=== PATIENT | female | born 1960 | race Caucasian/White ===

== ENCOUNTER 2019-10-29 13:18 | Outpatient (CLI) | payer OTHER ==
--- NOTE | 2019-10-29 13:43 | MMO ---
Bilateral MAMMO Bilat Screen [facility]. CLINICAL HISTORY: Patient is 58 years old and is seen for screening. The patient has the following family history of breast cancer: mother, at age 74. The patient has no personal history of cancer. The patient has a history of bilateral Breast reduction in 2008. VIEWS: The views performed were: bilateral craniocaudal with tomosynthesis and bilateral mediolateral oblique with tomosynthesis. FILMS COMPARED: The present examination has been compared to prior imaging studies performed at [facility] on 05/24/2013 and 07/19/2016, and at [facility] on 05/28/2009 and 01/21/2011. This study has been interpreted with the assistance of computer-aided detection. MAMMOGRAM FINDINGS: There are scattered fibroglandular densities. There are stable benign appearing calcifications seen in both breasts. There are no suspicious masses, suspicious calcifications, or new areas of architectural distortion. IMPRESSION: THERE IS NO MAMMOGRAPHIC EVIDENCE OF MALIGNANCY. A ROUTINE FOLLOW-UP MAMMOGRAM IN 1 YEAR IS RECOMMENDED. THE RESULTS OF THIS EXAM WERE SENT TO THE PATIENT. ACR BI-RADS Category 2 - Benign finding MAMMOGRAPHY NOTE: 1. A negative mammogram report should not delay a biopsy if a dominant of clinically suspicious mass is present. 2. Approximately 10% to 15% of breast cancers are not detected by mammography. 3. Adenosis and dense breasts may obscure an underlying neoplasm. Reported by: EZ DUKE MD Electonically Signed: [id number]
== END 2019-10-29 13:19 | disposition home or self-care (01) ==
LOC: BICMAMMO 13:18
PROVIDERS: ATTEND Nurse Practitioner
DX: Z12.31 Encounter for screening mammogram for malignant neoplasm of breast (principal); Z80.3 Family history of malignant neoplasm of breast; Z98.890 Other specified postprocedural states
CPT/HCPCS: 77063; 77067

== ENCOUNTER 2019-12-12 05:57 | Day surgery (SDC) | payer OTHER ==
[2019-12-11 15:38] VITALS: BMI 27.1
[2019-12-12] MEDS ORDERED: Midazolam HCl 2 mg/2 ml Vial ONE (07:07)
[2019-12-12] MEDS ORDERED: Fentanyl 100 MCG/2 ML VIAL ONE (07:07)
[2019-12-12] MEDS ORDERED: Ondansetron PF 4 MG/2 ML Vial ONE ×2 (07:15→11:11)
[2019-12-12] MEDS ORDERED: PROPOFOL 20 ML ONE (07:15)
[2019-12-12] MEDS ORDERED: Ketorolac Tromethamine 30 MG/ML VIAL ONE ×2 (07:15→11:11)
[2019-12-12] MEDS ORDERED: Bupivacaine/Epinephrine 0.25% 30 ML VIAL ONE (07:48)
[2019-12-12] MEDS ORDERED: EPHEDRINE 25 MG/5 ML SYRINGE ONE ×3 (07:49→11:11)
[2019-12-12] MEDS ORDERED: Lidocaine 1% (PF) 30 ML VIAL ONE (08:19)
[2019-12-12] MEDS ORDERED: Lidocaine 1% PF 5 ML VIAL ONE (11:11)
[2019-12-12] MEDS ORDERED: PROPOFOL 200 MG/20 ML VIAL ONE (11:11)
--- NOTE | 2019-12-12 14:08 | HP ---
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 The patient's pain has been present for now at least 8 months. The patient was hiking and had acute increase in pain knee. The patient has pain that is 0 to 4/10 at times. PAST MEDICAL HISTORY: Hypertension, depression, reflux, and diabetes. PAST SURGICAL HISTORY: Tonsillectomy, breast reduction, carpal tunnel bilaterally, and appendectomy. ALLERGIES: NO KNOWN DRUG ALLERGIES. MEDICATIONS: 1. Amlodipine. 2. Aspirin. 3. Pristiq. 4. Esomeprazole. 5. Hydrochlorothiazide. 6. Lisinopril. 7. Metformin. 8. Multivitamin. 9. Naproxen. 10. Ruvastatin. 11. Ozempic. PHYSICAL EXAMINATION: GENERAL: Alert and oriented female, in no acute distress, resting comfortably in bed. EXTREMITIES: Left lower extremity, no effusion, no erythema, no ecchymosis, no significant swelling. The patient has on palpation, this may be a subtle palpable cyst. The patient has no surgical wounds appreciated. She is neurovascularly intact with positive Batsheva's. The patient has full flexion and extension. IMAGING STUDIES: MRI from earlier this year showed a medial meniscus tear with a posteromedial aspect of the calf a parameniscal cyst. IMPRESSION: 1. Tear of medial meniscus, left knee. 2. Cyst of the left knee joint. ASSESSMENT AND PLAN: I discussed with the patient the risks and benefits of left knee arthroscopy with partial medial meniscectomy with possible decompression of the cyst versus an open excision. I discussed the risks and benefits of the surgery to include, pain, scar, bleeding, infection, damage to vital structures, decreased range of motion and strength, need for further surgery, continued pain despite surgical intervention, loss of life or limb, and blood clots. I discussed the risks and benefits of just decompressing the cyst versus open excision. I discussed the series of an examination or small aspiration of the cyst, that has been shown in some studies to be beneficial as well as an open excision. I discussed that there is more risk associated with the open incision, greater scar, I tried to show the patient the difference between the mechanical pain associated with the medial meniscus versus palpable pain from the mass component of the cyst. We discussed both options at length and the patient elected for just the decompression and not an open excision. I discussed that at a later date if necessary that could be performed. She understood this. The patient elected to proceed with a left medial meniscectomy with decompression instead of aspiration and the patient will be taken to the operating suite. Job ID: [id number]
--- NOTE | 2019-12-13 07:55 | OP ---
DATE OF PROCEDURE: 12/12/2019 PREOPERATIVE DIAGNOSIS: Left medial meniscus tear complex with parameniscal cyst. POSTOPERATIVE DIAGNOSIS: Left medial meniscus tear complex with parameniscal cyst. PROCEDURE PERFORMED: Left medial meniscectomy. MACHINE STACKER: None. ANESTHESIOLOGIST: Lm Louise MD ANESTHESIA: The patient received an LMA with 25 mL of Marcaine 0.25% with epinephrine preprocedure, 25 mL lidocaine 1% plain postprocedure. ANTIBIOTICS: 2 g of Ancef. TOURNIQUET TIME: 21 minutes. COMPLICATIONS: None. HISTORY OF PRESENT ILLNESS: Ms. Monsivais is a pleasant 58-year-old female. She is a pharmacist, who noted left medial knee pain. MRI evidence showing a medial meniscus tear with parameniscal cyst. I discussed with her risks and benefits of a medial meniscectomy with possible decompression versus open excision of the parameniscal cyst. She understood the risks and benefits to include, pain, scar, bleeding, infection, damage to vital structures, decreased range of motion, recurrence of parameniscal cyst, need for further surgeries, blood clots, loss of life or limb. The patient understood the risks and benefits and elected to proceed. DESCRIPTION OF PROCEDURE: Time-out was performed designating the patient's left lower extremity as the operative site based on site, consents, and marking. After time-out, the patient's left lower extremity was prepped and draped in a sterile fashion. Tourniquet was brought up and it was left up for a total of 21 minutes. Anterolateral portal was placed and anteromedial portal was placed under direct visualization. Debrided the fat pad. I started my diagnostic scope including the ACL, which was intact. PCL was intact. The patellofemoral joint, looked in both gutters, could not see any bulge noted. I then moved laterally, saw the meniscus was intact, in its position and there was no other tearing. I then looked medially. Medially, I could find one tear near the medial aspect of the posterior horn. I probed with a needle, I attempted to localize this because it was a complex tear, which I shaved posteriorly to stable remnant, which I probed. Given this, I looked again in the gutter for any bulge that was more anterior to the MCL. I attempted to place my portal in the posterior medial aspect behind the femoral condyle, but it was stopped by soft tissue as well as a tight notch and elected not to further damage it because I could not palpate the parameniscal cyst. It was superficial on MRI imaging to the ligament and would not likely be visualized within the joint. I palpated with my finger near the sartorius and hamstrings posterior to the MCL where it should pass the needle pass in an attempt to try to palpate our second interspace and could find nothing on aspiration. Given this second pass elected to stop because I didn't feel I was able to localize it. I went back into the knee scope, cleaned out the joint and ensured that the meniscus was completely debrided. I then injected lidocaine at the end and closed with 3-0 nylon. The patient will be discharged to home weightbearing as tolerated. I will follow up with her in about 10 to 14 days. Job ID: [id number]
== END 2019-12-12 11:40 | disposition home or self-care (01) ==
LOC: SDC 05:57
PROVIDERS: ATTEND Orthopaedic Surgery
PROC: 0SBD4ZZ Excision of Left Knee Joint, Percutaneous Endoscopic Approach (ICD-10-PCS; principal; 2019-12-12)
DX: S83.232A Complex tear of medial meniscus, current injury, left knee, initial encounter (principal); M25.862 Other specified joint disorders, left knee; I10 Essential (primary) hypertension; F32.9 Major depressive disorder, single episode, unspecified; K21.9 Gastro-esophageal reflux disease without esophagitis; E11.9 Type 2 diabetes mellitus without complications; Z79.82 Long term (current) use of aspirin; Z79.84 Long term (current) use of oral hypoglycemic drugs; Z79.899 Other long term (current) drug therapy
CPT/HCPCS: 93005; 93010; J0690; J1885; J2001; J2250; J2405; J2704; J3010

== ENCOUNTER 2020-09-13 14:36 | Emergency (ER) | payer OTHER ==
[2020-09-13 16:52] LABS: #Lymphocytes 1.1 thou/uL (1.20-3.40); #Monocytes 0.3 thou/uL (0.11-0.59); #Neutrophils 5.2 thou/uL (1.40-6.50); %Basophils 0.4 % (0.0-1.0); %Eosinophils 0.1 % (0.0-10.0); %Lymphocytes 16.8 % (21.0-51.0); %Monocytes 4.5 % (0.0-10.0); %Neutrophils 78.3 % (42.0-75.0); Hemoglobin 14.9 g/dL (12.0-16.0); Mean Corpuscular HGB CONC 35.2 g/dL (32.0-36.0); Mean Corpuscular Hemoglobin 31.8 pg (27.0-31.0); Mean Corpuscular Volume 90.4 fL (78.0-98.0); Mean Platelet Volume 8.8 fL (7.4-10.4); Platelet Count 159 thou/uL (130-400); Red Blood Cell (RBC) Count 4.69 mill/uL (4.20-5.40); White Blood Cell (WBC) Count 6.6 thou/uL (4.8-10.8)
[2020-09-13] MEDS ORDERED: Ondansetron ODT 4 MG TAB ONE (17:01)
[2020-09-13] MEDS ORDERED: Dexamethasone 10 MG/ML VIAL ONE (17:01)
[2020-09-13] MEDS ORDERED: Acetaminophen 500 MG TAB ONE (17:01)
[2020-09-13 17:08] LABS: ALT (SGPT) 31 U/L (8-55); AST (SGOT) 45 U/L (5-34); Albumin 3.9 g/dL (3.5-5.0); Alkaline Phosphatase 80 U/L (40-110); Anion Gap 16 mmol/L (10-20); BUN (Urea Nitrogen) 9 mg/dL (9.8-20.1); Bilirubin, Total 0.5 mg/dL (0.2-1.2); Calc. Creatinine Clearance 0 mL/min (70-130); Calcium 8.6 mg/dL (7.8-10.44); Carbon Dioxide 26 mmol/L (22-29); Chloride 96 mmol/L (98-107); Globulin 2.5 g/dL (2.4-3.5); Glucose 110 mg/dL (70-105); Potassium 4.2 mmol/L (3.5-5.1); Protein, Total 6.4 g/dL (6.0-8.3); Sodium 134 mmol/L (136-145)
== END 2020-09-13 18:19 | disposition home or self-care (01) ==
LOC: ERS 14:36
DX: U07.1 COVID-19 (principal); J12.82 Pneumonia due to coronavirus disease 2019; E78.5 Hyperlipidemia, unspecified; I10 Essential (primary) hypertension; E11.9 Type 2 diabetes mellitus without complications; Z79.899 Other long term (current) drug therapy; Z79.82 Long term (current) use of aspirin; Z79.84 Long term (current) use of oral hypoglycemic drugs
CPT/HCPCS: 36415; 71045; 80053; 83605; 84484; 85025; 85379; 86140; 96374; J1100; Q0162

== ENCOUNTER 2020-09-17 20:50 | Inpatient (IN) | payer OTHER ==
[~2020-09-17 20:50] MED LIST: Iopamidol-370 76% 500 ML 1 ML ONE
[2020-09-17] MEDS ORDERED: Albuterol 200 PUFF (6.7GM INHALER) ONE (21:31)
[2020-09-17 22:25] LABS: #Eosinphils 0.1 thou/uL (0.0-0.7); #Lymphocytes 1.5 thou/uL (1.20-3.40); #Monocytes 0.9 thou/uL (0.11-0.59); #Neutrophils 7.8 thou/uL (1.40-6.50); %Basophils 0.3 % (0.0-1.0); %Eosinophils 0.5 % (0.0-10.0); %Lymphocytes 14.2 % (21.0-51.0); %Monocytes 8.3 % (0.0-10.0); %Neutrophils 76.6 % (42.0-75.0); Band 2 % (5-11); Hemoglobin 14.3 g/dL (12.0-16.0); Lymphocytes 15 % (21-51); MDiff Complete? YES; Mean Corpuscular HGB CONC 34.3 g/dL (32.0-36.0); Mean Corpuscular Hemoglobin 30.7 pg (27.0-31.0); Mean Corpuscular Volume 89.4 fL (78.0-98.0); Mean Platelet Volume 7.8 fL (7.4-10.4); Monocytes 7 % (0-10); Neutrophil 76 % (42-75); Platelet Count 271 thou/uL (130-400); Platelet Morphology Comment Appears Adequate; RBC Morphology Normal; Red Blood Cell (RBC) Count 4.67 mill/uL (4.20-5.40); White Blood Cell (WBC) Count 10.2 thou/uL (4.8-10.8)
[2020-09-17 22:26] LABS: AST (SGOT) 29 U/L (5-34); Albumin 3.7 g/dL (3.5-5.0); Alkaline Phosphatase 96 U/L (40-110); Anion Gap 14 mmol/L (10-20); BUN (Urea Nitrogen) 16 mg/dL (9.8-20.1); Bilirubin, Total 0.7 mg/dL (0.2-1.2); Calc. Creatinine Clearance 0 mL/min (70-130); Calcium 8.8 mg/dL (7.8-10.44); Carbon Dioxide 25 mmol/L (22-29); Chloride 102 mmol/L (98-107); Globulin 2.5 g/dL (2.4-3.5); Glucose 151 mg/dL (70-105); Potassium 4.3 mmol/L (3.5-5.1); Protein, Total 6.2 g/dL (6.0-8.3); Sodium 137 mmol/L (136-145)
[2020-09-17 22:54] LABS: ALT (SGPT) 33 U/L (8-55)
[2020-09-18] MEDS ORDERED: HYDROcodone/Acetaminophen 7.5/325 mg Tablet PO PRN (00:12)
[2020-09-18] MEDS ORDERED: Dextrose 50% Abboject 50 ML SYRINGE SLOW IVP PRN (00:12)
[2020-09-18] MEDS ORDERED: Bisacodyl 5 MG TAB PO PRN (00:12)
[2020-09-18] MEDS ORDERED: Acetaminophen 325 MG TAB PO PRN (00:12)
[2020-09-18] MEDS ORDERED: Zolpidem Tartrate 5 MG TAB PO PRN (00:12)
[2020-09-18] MEDS ORDERED: Dextrose 5% in Water 1,000 ML IV PRN (00:12)
[2020-09-18] MEDS ORDERED: Morphine 2 MG/ML VIAL SLOW IVP PRN (00:17)
[2020-09-18] MEDS ORDERED: hydrALAZINE 20 MG/ML VIAL SLOW IVP PRN ×2 (00:17→00:18)
[2020-09-18 01:58] VITALS: BMI 26.1
[2020-09-18] MEDS: Albuterol 200 PUFF (6.7GM INHALER) INH SCH ×6 (02:23→22:35)
[2020-09-18] MEDS: HumaLOG 300 UNITS/3 ML VIAL SC PRN ×4 (05:22→20:27)
[2020-09-18 06:38] LABS: Band 1 % (5-11); Hemoglobin 12.6 g/dL (12.0-16.0); Lymphocytes 20 % (21-51); MDiff Complete? YES; Mean Corpuscular Hemoglobin 29.7 pg (27.0-31.0); Mean Corpuscular Volume 89.8 fL (78.0-98.0); Mean Platelet Volume 7.5 fL (7.4-10.4); Monocytes 5 % (0-10); Neutrophil 67 % (42-75); Nucleated RBC 1 % (0); Platelet Count 248 thou/uL (130-400); Platelet Morphology Comment Appears Adequate; RBC Distribution Width 11.8 % (11.5-14.5); RBC Morphology Normal; Reactive Lymphocytes 7 % (0-10); Red Blood Cell (RBC) Count 4.26 mill/uL (4.20-5.40); White Blood Cell (WBC) Count 7.7 thou/uL (4.8-10.8)
[2020-09-18 06:42] LABS: ALT (SGPT) 24 U/L (8-55); AST (SGOT) 18 U/L (5-34); Albumin 3.1 g/dL (3.5-5.0); Alkaline Phosphatase 80 U/L (40-110); Anion Gap 10 mmol/L (10-20); BUN (Urea Nitrogen) 11 mg/dL (9.8-20.1); Bilirubin, Total 0.6 mg/dL (0.2-1.2); Calc. Creatinine Clearance 96 mL/min (70-130); Calcium 8.2 mg/dL (7.8-10.44); Carbon Dioxide 24 mmol/L (22-29); Chloride 105 mmol/L (98-107); Globulin 2.5 g/dL (2.4-3.5); Glucose 141 mg/dL (70-105); Potassium 3.7 mmol/L (3.5-5.1); Protein, Total 5.6 g/dL (6.0-8.3); Sodium 135 mmol/L (136-145)
[2020-09-18] MEDS ORDERED: Dexamethasone 4 MG TAB PO SCH ×2 (08:00→08:15)
[2020-09-18] MEDS: Amlodipine 5 MG TAB PO SCH (08:38)
[2020-09-18] MEDS: Enoxaparin Sodium 40 MG/0.4 ML SYRINGE SC SCH (08:38)
[2020-09-18] MEDS: Aspirin 81 mg Enteric Coated Tablet PO SCH (08:39)
[2020-09-18] MEDS: Famotidine 20 MG TAB PO SCH ×2 (08:39→20:26)
[2020-09-18] MEDS: Lisinopril 20 MG TAB PO SCH (08:39)
[2020-09-18] MEDS: guaiFENesin ER 600 MG TAB PO SCH ×2 (08:40→20:26)
[2020-09-18] MEDS: Venlafaxine HCl XR 150 MG CAP PO SCH (08:40)
[2020-09-18] MEDS: Zinc Sulfate 220 MG CAP PO SCH (08:40)
[2020-09-18] MEDS: Hydrochlorothiazide 25 MG TAB PO SCH (08:40)
[2020-09-18] MEDS ORDERED: metFORMIN XR 500 MG TAB PO SCH (09:00)
[2020-09-18] MEDS ORDERED: Cefepime 1 GM in Sodium Chloride 0.9% 100 ML IVPB SCH (09:00)
[2020-09-18 11:08] LABS: SARS-CoV-2 PCR by NAA DETECTED (NotDetected)
[2020-09-18] MEDS: Dexamethasone 4 MG TAB PO SCH (17:41)
[2020-09-18] MEDS: Rosuvastatin 20 MG TAB PO SCH (20:26)
[2020-09-19] MEDS: Albuterol 200 PUFF (6.7GM INHALER) INH SCH ×6 (01:42→22:33)
[2020-09-19] MEDS: HumaLOG 300 UNITS/3 ML VIAL SC PRN ×4 (05:59→20:06)
[2020-09-19] MEDS: Dexamethasone 4 MG TAB PO SCH ×2 (09:17→17:18)
[2020-09-19] MEDS: Hydrochlorothiazide 25 MG TAB PO SCH (09:18)
[2020-09-19] MEDS: Lisinopril 20 MG TAB PO SCH (09:18)
[2020-09-19] MEDS: Venlafaxine HCl XR 150 MG CAP PO SCH (09:18)
[2020-09-19] MEDS: Aspirin 81 mg Enteric Coated Tablet PO SCH (09:18)
[2020-09-19] MEDS: Enoxaparin Sodium 40 MG/0.4 ML SYRINGE SC SCH ×2 (09:18→20:05)
[2020-09-19] MEDS: guaiFENesin ER 600 MG TAB PO SCH ×2 (09:18→20:05)
[2020-09-19] MEDS: Famotidine 20 MG TAB PO SCH ×2 (09:18→20:05)
[2020-09-19] MEDS: Zinc Sulfate 220 MG CAP PO SCH (09:18)
[2020-09-19] MEDS: Amlodipine 5 MG TAB PO SCH (09:18)
[2020-09-19] MEDS ORDERED: metFORMIN 500 MG TAB PO SCH (09:30)
[2020-09-19 10:38] LABS: CRP (Inflammatory) 10.27 mg/dL (= or < 0.5)
[2020-09-19] MEDS: metFORMIN 500 MG TAB PO SCH (17:18)
[2020-09-19] MEDS: Rosuvastatin 20 MG TAB PO SCH (20:04)
[2020-09-20] MEDS: Albuterol 200 PUFF (6.7GM INHALER) INH SCH ×6 (02:25→22:29)
[2020-09-20] MEDS: HumaLOG 300 UNITS/3 ML VIAL SC PRN ×3 (05:48→19:52)
[2020-09-20] MEDS: Enoxaparin Sodium 40 MG/0.4 ML SYRINGE SC SCH ×2 (09:13→19:51)
[2020-09-20] MEDS: Dexamethasone 4 MG TAB PO SCH ×2 (09:13→17:31)
[2020-09-20] MEDS: Zinc Sulfate 220 MG CAP PO SCH (09:13)
[2020-09-20] MEDS: Famotidine 20 MG TAB PO SCH ×2 (09:13→19:51)
[2020-09-20] MEDS: Venlafaxine HCl XR 150 MG CAP PO SCH (09:14)
[2020-09-20] MEDS: guaiFENesin ER 600 MG TAB PO SCH ×2 (09:14→19:51)
[2020-09-20] MEDS: Amlodipine 5 MG TAB PO SCH (09:14)
[2020-09-20] MEDS: Lisinopril 20 MG TAB PO SCH (09:14)
[2020-09-20] MEDS: Aspirin 81 mg Enteric Coated Tablet PO SCH (09:14)
[2020-09-20] MEDS: Hydrochlorothiazide 25 MG TAB PO SCH (09:14)
[2020-09-20] MEDS: metFORMIN 500 MG TAB PO SCH ×2 (09:14→17:31)
[2020-09-20] MEDS: Rosuvastatin 20 MG TAB PO SCH (19:51)
[2020-09-21] MEDS: Albuterol 200 PUFF (6.7GM INHALER) INH SCH ×4 (02:45→15:21)
[2020-09-21] MEDS: Zinc Sulfate 220 MG CAP PO SCH (09:05)
[2020-09-21] MEDS: Venlafaxine HCl XR 150 MG CAP PO SCH (09:05)
[2020-09-21] MEDS: Amlodipine 5 MG TAB PO SCH (09:06)
[2020-09-21] MEDS: Hydrochlorothiazide 25 MG TAB PO SCH (09:06)
[2020-09-21] MEDS: Lisinopril 20 MG TAB PO SCH (09:06)
[2020-09-21] MEDS: Famotidine 20 MG TAB PO SCH (09:07)
[2020-09-21] MEDS: Dexamethasone 4 MG TAB PO SCH (09:07)
[2020-09-21] MEDS: guaiFENesin ER 600 MG TAB PO SCH (09:07)
[2020-09-21] MEDS: Aspirin 81 mg Enteric Coated Tablet PO SCH (09:08)
[2020-09-21] MEDS: Enoxaparin Sodium 40 MG/0.4 ML SYRINGE SC SCH (09:08)
[2020-09-21] MEDS: metFORMIN 500 MG TAB PO SCH (09:11)
[2020-09-21 11:50] VITALS: BP 136/83; TEMP 97.4
== END 2020-09-21 16:45 | disposition home or self-care (01) | DRG 177 ==
LOC: ERS 20:50 → T4-B 09-18 00:01
PROVIDERS: ADMIT Internal Medicine; ATTEND Internal Medicine
DX: U07.1 COVID-19 (principal); J96.01 Acute respiratory failure with hypoxia; J12.82 Pneumonia due to coronavirus disease 2019; E78.5 Hyperlipidemia, unspecified; I10 Essential (primary) hypertension; E11.9 Type 2 diabetes mellitus without complications; F32.9 Major depressive disorder, single episode, unspecified; Z90.89 Acquired absence of other organs; Z79.84 Long term (current) use of oral hypoglycemic drugs; Z79.82 Long term (current) use of aspirin; Z79.899 Other long term (current) drug therapy; Z90.710 Acquired absence of both cervix and uterus
CPT/HCPCS: 36415; 36416; 71045; 71275; 80053; 84466; 84484; 85007; 85025; 85027; 85379; 86140; 93005; J1650; J8540; Q9967; U0003; U0005

== ENCOUNTER 2021-05-11 16:01 | Emergency (ER) | payer OTHER ==
[2021-05-12 08:36] LABS: SARS-CoV-2 PCR by NAA Not Detected (NotDetected)
== END 2021-05-11 19:53 | disposition home or self-care (01) ==
LOC: ERS 16:01
DX: J02.9 Acute pharyngitis, unspecified (principal); Z20.822 Contact with and (suspected) exposure to COVID-19; Z79.899 Other long term (current) drug therapy; Z79.82 Long term (current) use of aspirin; Z79.84 Long term (current) use of oral hypoglycemic drugs; I10 Essential (primary) hypertension; E11.9 Type 2 diabetes mellitus without complications
CPT/HCPCS: 71045; 87081; 87430; U0003; U0005

== ENCOUNTER 2021-10-05 09:13 | Outpatient (CLI) | payer OTHER | END 2021-10-05 09:14 | disposition home or self-care (01) | LOC: BICULT 09:13 | PROVIDERS: ATTEND Physician Assistant Medical | DX: R10.10 Upper abdominal pain, unspecified (principal); K59.00 Constipation, unspecified | CPT/HCPCS: 76700 ==

== ENCOUNTER 2021-10-05 09:29 | Outpatient (CLI) | payer OTHER | END 2021-10-05 09:30 | disposition home or self-care (01) | LOC: BICMAMMO 09:29 | PROVIDERS: ATTEND Nurse Practitioner | DX: Z12.31 Encounter for screening mammogram for malignant neoplasm of breast (principal); Z80.3 Family history of malignant neoplasm of breast; Z98.890 Other specified postprocedural states | CPT/HCPCS: 77063; 77067 ==